=== PATIENT | female | born 1970 | race Caucasian/White ===

== ENCOUNTER 2018-09-12 13:33 | Emergency (ER) | payer OTHER ==
[~2018-09-12] VITALS: Ht 175.3 cm; Wt 90.7 kg
[~2018-09-12 13:33] MED LIST: ACYC800 PO; ALBU90OI INH; AZIT250 PO; BENTYL20 MG PO; CEPH250A PO; CEPH500 PO; CETI10 PO; CODGUAEL PO; CYCL10 PO; DIPATR PO; DIPH25 PO; DIPH50; DIPH50 PO; DOXY100 PO; FAMO20 PO; FLUC150A PO; FLUC200 PO; FLUO.05TC TOP; HYDACE10B PO; HYDACE5; HYDACE5 PO; HYDACE5325 PO; HYDACE7.5; HYDGUAL120 PO; HYDMOR4 PO; IBUP800; IBUP800 PO; IRON SUPPLEMENT PO; LORA2 PO; NAPR500 PO; NAPR500EC PO; Norco 5-325 Ta1 EACH PO; OMEP10ER; OMEP20ER; OMEP20ER PO; OXYACE5T PO; OXYC5 PO; POTCHL20ER PO; PRED10 PO; PRED20 PO; PRILOSEC PO; PROM12.5S; PROM25 PO; PROM6.25SY; Phenergan25 M1 PO; RANI150; RANI150 PO; SULF10OPSA OS; SULTRIDS PO; Zofran Odt4 MG SL
== END 2018-09-12 14:54 | disposition left against medical advice (07) ==
LOC: ER 13:33
DX: Z53.21 Procedure and treatment not carried out due to patient leaving prior to being seen by health care provider (principal)

== ENCOUNTER 2020-06-06 14:13 | Emergency (ER) | payer OTHER ==
[~2020-06-06] VITALS: Ht 175.3 cm; Wt 89.4 kg
[2020-06-06 14:48] LABS: BASOPHILS ABSOLUTE AUTO 0.02 K/mm3 (0.00-0.23); BASOPHILS PERCENT AUTO 0 % (0-2); EOSINOPHILS PERCENT AUTO 3 % (0-6); Hematocrit 44.4 % (33.0-51.0); Hemoglobin 14.6 g/dL (11.5-16.0); IMMATURE GRAN ABSOLUTE AUTO 0.02 K/mm3 (0.00-0.10); IMMATURE GRAN PERCENT AUTO 0 % (0-1); LYMPHOCYTES ABSOLUTE AUTO 1.37 K/mm3 (0.84-5.20); LYMPHOCYTES PERCENT AUTO 15 % (21-46); MONOCYTES ABSOLUTE AUTO 0.52 K/mm3 (0.16-1.47); MONOCYTES PERCENT AUTO 6 % (4-13); Mean Corpuscular HGB 30.5 pg (26.0-34.0); Mean Corpuscular HGB Conc 32.9 g/dL (31.5-36.5); Mean Corpuscular Volume 93 fL (80-100); NEUTROPHILS PERCENT AUTO 75 % (41-73); Platelet Count 213 K/mm3 (150-400); RDW Standard Deviation 44.5 fL (35.1-46.3); Red Blood Cell Count 4.78 M/mm3 (3.80-5.20); White Blood Cell Count 9.03 K/mm3 (4.00-11.30)
[2020-06-06 15:24] LABS: Alanine Aminotransfer (ALT/SGP 51 U/L (12-78); Albumin, Blood 3.8 g/dL (3.4-5.0); Albumin/Globulin Ratio 0.9 (0.8-1.8); Alk Phos 92 U/L (50-136); Anion Gap 4 mmol/L (6-16); Aspartate Aminotrans (AST/SGOT 35 U/L (12-37); Bilirubin, Total 0.4 mg/dL (0.1-1.0); Blood Urea Nitrogen 8 mg/dL (8-24); Bun/Creatinine Ratio 12.2 (12.0-20.0); CO2, Blood 31 mmol/L (21-32); Calcium, Blood 8.9 mg/dL (8.5-10.1); Chloride, Blood 102 mmol/L (98-108); Creatinine, Blood 0.66 mg/dL (0.40-1.00); Globulin, Blood 4.4 g/dL (2.2-4.0); Glomerular Filtration Rate >60 (60-); Glucose, Blood 98 mg/dL (70-99); Potassium, Blood 3.5 mmol/L (3.5-5.5); Sodium, Blood 137 mmol/L (136-145); Total Protein, Blood 8.2 g/dL (6.4-8.2)
[2020-06-06] MEDS ORDERED: AMOCLA875 PO (16:52)
[2020-06-06] MEDS ORDERED: Norco 5-325 Ta1 EACH PO (16:52)
== END 2020-06-06 17:40 | disposition home or self-care (01) ==
LOC: ER 14:13
PROVIDERS: Emergency Medicine
DX: K04.7 Periapical abscess without sinus (principal); L03.211 Cellulitis of face; F17.210 Nicotine dependence, cigarettes, uncomplicated
CPT/HCPCS: 36415; 80053; 85025; 96365; 99283-25; J0295

== ENCOUNTER 2021-02-05 13:20 | Emergency (ER) | payer OTHER ==
[~2021-02-05] VITALS: Ht 175.3 cm; Wt 94.8 kg
[~2021-02-05 13:20] MED LIST changes: +AMOCLA875 PO
[2021-02-05 14:27] LABS: BASOPHILS ABSOLUTE AUTO 0.03 K/mm3 (0.00-0.23); BASOPHILS PERCENT AUTO 1 % (0-2); EOSINOPHILS ABSOLUTE AUTO 0.43 K/mm3 (0.00-0.68); EOSINOPHILS PERCENT AUTO 7 % (0-6); Hematocrit 41.7 % (33.0-51.0); Hemoglobin 13.8 g/dL (11.5-16.0); IMMATURE GRAN ABSOLUTE AUTO 0.01 K/mm3 (0.00-0.10); IMMATURE GRAN PERCENT AUTO 0 % (0-1); LYMPHOCYTES ABSOLUTE AUTO 1.36 K/mm3 (0.84-5.20); LYMPHOCYTES PERCENT AUTO 21 % (21-46); MONOCYTES ABSOLUTE AUTO 0.42 K/mm3 (0.16-1.47); MONOCYTES PERCENT AUTO 7 % (4-13); Mean Corpuscular HGB 31.2 pg (26.0-34.0); Mean Corpuscular HGB Conc 33.1 g/dL (31.5-36.5); Mean Corpuscular Volume 94 fL (80-100); Mean Platelet Volume 11.3 fL (9.1-12.4); NEUTROPHILS ABSOLUTE AUTO 4.11 K/mm3 (1.96-9.15); NEUTROPHILS PERCENT AUTO 65 % (41-73); Platelet Count 195 K/mm3 (150-400); RDW Coefficient Variation 13.3 % (11.7-14.2); RDW Standard Deviation 46.3 fL (35.1-46.3); Red Blood Cell Count 4.43 M/mm3 (3.80-5.20); White Blood Cell Count 6.36 K/mm3 (4.00-11.30)
[2021-02-05 14:38] LABS: Alanine Aminotransfer (ALT/SGP 22 U/L (12-78); Albumin, Blood 3.5 g/dL (3.4-5.0); Albumin/Globulin Ratio 0.9 (0.8-1.8); Alk Phos 63 U/L (50-136); Anion Gap 4 mmol/L (6-16); Aspartate Aminotrans (AST/SGOT 16 U/L (12-37); Bilirubin, Total 0.5 mg/dL (0.1-1.0); Blood Urea Nitrogen 16 mg/dL (8-24); Bun/Creatinine Ratio 21.3 (12.0-20.0); CO2, Blood 29 mmol/L (21-32); Calcium, Blood 8.2 mg/dL (8.5-10.1); Chloride, Blood 106 mmol/L (98-108); Creatinine, Blood 0.75 mg/dL (0.40-1.00); Globulin, Blood 3.7 g/dL (2.2-4.0); Glomerular Filtration Rate >60 (60-); Glucose, Blood 117 mg/dL (70-99); Potassium, Blood 3.9 mmol/L (3.5-5.5); Sodium, Blood 139 mmol/L (136-145); Total Protein, Blood 7.2 g/dL (6.4-8.2)
[2021-02-05 14:48] LABS: Free Thyroxine 0.85 ng/dL (0.70-1.60); Thyroid Stimulating Hormone 1.71 uIU/mL (0.360-4.800)
== END 2021-02-05 16:08 | disposition home or self-care (01) ==
LOC: ER 13:20
PROVIDERS: Physician Assistant
DX: H53.8 Other visual disturbances (principal); F17.200 Nicotine dependence, unspecified, uncomplicated; Z88.1 Allergy status to other antibiotic agents; Z88.6 Allergy status to analgesic agent
CPT/HCPCS: 36415; 70450; 80053; 84439; 84443; 85025; 85651; 86141; 99284-25

== ENCOUNTER 2021-10-18 09:14 | Emergency (ER) | payer OTHER ==
[~2021-10-18] VITALS: Ht 175.3 cm; Wt 90.7 kg
[2021-10-18] MEDS ORDERED: ONDA4ODT MM (12:35)
== END 2021-10-18 12:45 | disposition home or self-care (01) ==
LOC: ER 09:14
DX: U07.1 COVID-19 (principal); F17.200 Nicotine dependence, unspecified, uncomplicated; Z88.6 Allergy status to analgesic agent; Z88.1 Allergy status to other antibiotic agents
CPT/HCPCS: 36415; 96374; 96375; 99283-25; J1885; J2405; J7030

== ENCOUNTER → 2021-12-02 | Outpatient (CLI) | payer OTHER ==
[~2021-12-02] MED LIST changes: +ONDA4ODT MM
[2021-12-02 11:56] LABS: Source, Urine Clean Catch
[2021-12-02 15:55] LABS: Bilirubin, Urine Neg (Neg); Blood, Urine Neg (Neg); Color, Urine Yellow (P-Yellow); Glucose Qualitative, Urine Neg (Neg); Ketones, Urine Neg (Neg); Leukocyte Esterase, Urine Neg (Neg); Nitrite, Urine Pos (Neg); Protein, Urine Neg (Neg); Specific Gravity, Urine 1.015 (1.003-1.022); Urobilinogen, Urine NORM (Normal)
[2021-12-02 16:17] LABS: Appearance, Urine Hazy (Clear)
[2021-12-02 16:18] LABS: Bacteria Many /hpf; Red Blood Cells, Urine 0-2 /hpf (0-2); Squamous Epithelial Cells Few /hpf (Few)
== END ==
LOC: LAB SHORT 11:00 → LAB 11:00
PROVIDERS: Physician Assistant Medical
DX: M54.50 Low back pain, unspecified (principal)
CPT/HCPCS: 81001; 87077; 87086; 87186

== ENCOUNTER 2022-08-18 22:53 | Emergency (ER) | payer OTHER ==
[~2022-08-18] VITALS: Ht 175.3 cm; Wt 81.7 kg
[2022-08-18 23:20] LABS: BASOPHILS ABSOLUTE AUTO 0.03 K/mm3 (0.00-0.23); BASOPHILS PERCENT AUTO 1 % (0-2); EOSINOPHILS ABSOLUTE AUTO 0.25 K/mm3 (0.00-0.68); EOSINOPHILS PERCENT AUTO 5 % (0-6); Hematocrit 34.5 % (33.0-51.0); Hemoglobin 11.4 g/dL (11.5-16.0); IMMATURE GRAN ABSOLUTE AUTO 0.01 K/mm3 (0.00-0.10); IMMATURE GRAN PERCENT AUTO 0 % (0-1); LYMPHOCYTES ABSOLUTE AUTO 1.12 K/mm3 (0.84-5.20); LYMPHOCYTES PERCENT AUTO 22 % (21-46); MONOCYTES ABSOLUTE AUTO 0.31 K/mm3 (0.16-1.47); MONOCYTES PERCENT AUTO 6 % (4-13); Mean Corpuscular HGB 30.4 pg (26.0-34.0); Mean Corpuscular Volume 92 fL (80-100); Mean Platelet Volume 12.2 fL (9.1-12.4); NEUTROPHILS ABSOLUTE AUTO 3.28 K/mm3 (1.96-9.15); NEUTROPHILS PERCENT AUTO 66 % (41-73); Platelet Count 195 K/mm3 (150-400); RDW Coefficient Variation 14.2 % (11.7-14.2); RDW Standard Deviation 47.8 fL (35.1-46.3); Red Blood Cell Count 3.75 M/mm3 (3.80-5.20)
[2022-08-18 23:42] LABS: Albumin, Blood 3.1 g/dL (3.4-5.0); Albumin/Globulin Ratio 0.9 (0.8-1.8); Bilirubin, Total 0.4 mg/dL (0.1-1.0); Bun/Creatinine Ratio 15.4 (12.0-20.0); Calcium, Blood 8.7 mg/dL (8.5-10.1); Creatinine, Blood 0.91 mg/dL (0.40-1.00); Globulin, Blood 3.6 g/dL (2.2-4.0); Potassium, Blood 3.6 mmol/L (3.5-5.5); Total Protein, Blood 6.7 g/dL (6.4-8.2)
[2022-08-19 00:14] LABS: Influenza A, PCR NEGATIVE (NEGATIVE); Influenza B, PCR NEGATIVE (NEGATIVE); Resp Syncytial Virus, PCR NEGATIVE (NEGATIVE); SARS-Cov-2 (COVID-19) PCR, MMC NEGATIVE (NEGATIVE)
[2022-08-19] MEDS ORDERED: FURO20 PO (04:30)
[2022-08-19] MEDS ORDERED: Prinivil10 MG PO (04:30)
== END 2022-08-19 04:33 | disposition home or self-care (01) ==
LOC: ER 22:53
PROVIDERS: Student in an Organized Health Care Education/Training Program
DX: J81.1 Chronic pulmonary edema (principal); R06.00 Dyspnea, unspecified; F17.210 Nicotine dependence, cigarettes, uncomplicated; Z20.822 Contact with and (suspected) exposure to COVID-19; Z88.1 Allergy status to other antibiotic agents; Z88.8 Allergy status to other drugs, medicaments and biological substances; Z88.6 Allergy status to analgesic agent
CPT/HCPCS: 0241U; 36415; 71045; 71260; 80053; 83880; 84484; 85025; 85379; 93005; 93010; J1885; J1940; Q9967

== ENCOUNTER 2022-08-25 08:45 | Inpatient (IN) | payer OTHER ==
[~2022-08-25] VITALS: Ht 175.3 cm; Wt 82.2 kg
[~2022-08-25 08:45] MED LIST changes: +FURO20 PO; +Prinivil10 MG PO
[2022-08-25 10:02] LABS: BASOPHILS ABSOLUTE AUTO 0.03 K/mm3 (0.00-0.23); BASOPHILS PERCENT AUTO 1 % (0-2); EOSINOPHILS ABSOLUTE AUTO 0.34 K/mm3 (0.00-0.68); EOSINOPHILS PERCENT AUTO 7 % (0-6); Hematocrit 39.3 % (33.0-51.0); Hemoglobin 13.2 g/dL (11.5-16.0); IMMATURE GRAN ABSOLUTE AUTO 0.01 K/mm3 (0.00-0.10); IMMATURE GRAN PERCENT AUTO 0 % (0-1); LYMPHOCYTES ABSOLUTE AUTO 1.28 K/mm3 (0.84-5.20); LYMPHOCYTES PERCENT AUTO 25 % (21-46); MONOCYTES ABSOLUTE AUTO 0.43 K/mm3 (0.16-1.47); MONOCYTES PERCENT AUTO 8 % (4-13); Mean Corpuscular HGB 30.4 pg (26.0-34.0); Mean Corpuscular HGB Conc 33.6 g/dL (31.5-36.5); Mean Corpuscular Volume 91 fL (80-100); NEUTROPHILS ABSOLUTE AUTO 3.07 K/mm3 (1.96-9.15); NEUTROPHILS PERCENT AUTO 60 % (41-73); Platelet Count 255 K/mm3 (150-400); RDW Coefficient Variation 13.9 % (11.7-14.2); RDW Standard Deviation 46.5 fL (35.1-46.3); Red Blood Cell Count 4.34 M/mm3 (3.80-5.20); White Blood Cell Count 5.16 K/mm3 (4.00-11.30)
[2022-08-25 10:14] LABS: Albumin, Blood 3.6 g/dL (3.4-5.0); Albumin/Globulin Ratio 0.9 (0.8-1.8); Bilirubin, Total 0.8 mg/dL (0.1-1.0); Bun/Creatinine Ratio 25.2 (12.0-20.0); Calcium, Blood 8.6 mg/dL (8.5-10.1); Creatinine, Blood 0.79 mg/dL (0.40-1.00); Globulin, Blood 3.9 g/dL (2.2-4.0); Magnesium, Blood 2.2 mg/dL (1.6-2.4); Potassium, Blood 3.9 mmol/L (3.5-5.5); Total Protein, Blood 7.5 g/dL (6.4-8.2)
[2022-08-25 17:02] LABS: Source, Urine Clean Catch
[2022-08-25 17:15] LABS: Appearance, Urine Clear (Clear); Bilirubin, Urine Neg (Neg); Blood, Urine Neg (Neg); Color, Urine Yellow (P-Yellow); Glucose Qualitative, Urine Neg (Neg); Ketones, Urine Neg (Neg); Leukocyte Esterase, Urine 2+ (Neg); Nitrite, Urine Pos (Neg); Protein, Urine Neg (Neg); Urobilinogen, Urine NORM (Normal)
[2022-08-25 17:35] LABS: U Amphetamine Screen DETECTED; U Barbituate Screen Not Detected; U Benzodiazapine Screen Not Detected; U Buprenorphine Screen Not Detected; U Cannabinoids Screen Not Detected; U Cocaine Screen Not Detected; U Methadone Screen Not Detected; U Methamphetamine Screen DETECTED; U Opiates Screen Not Detected; U Oxycodone Screen Not Detected; U Phencyclidine Screen Not Detected; U Propoxyphene Screen Not Detected
[2022-08-25 17:44] LABS: Bacteria Many /hpf; Red Blood Cells, Urine 0-2 /hpf (0-2); Renal Epithelial Rare /hpf (0-Rare); Squamous Epithelial Cells Mod /hpf (Few); Transitional Epithelial Cells Rare /hpf (0-Rare)
--- NOTE | 2022-08-25 18:03 | NUR ---
SHIFT SUMMARY PT HAS BEEN RESTING IN BED SINCE ARRIVAL FROM ED. PT HAS C/O HUNGER AND THIS RN CONTACTED THE PROVIDER FOR CLARIFICATION OF NPO ORDERS. PT DENIES ANY C/O PAIN OR DISCOMFORT AND EXPRESSED AN ANXIETY ABOUT CARDIAC DIAGNOSES AND POTENTIAL IMPACTS TO DAILY LIFE. SBP HAS REMAINED LOW (105) AND PT REMAINS ASYMPTOMATIC.
[2022-08-26 04:17] LABS: Bun/Creatinine Ratio 31.6 (12.0-20.0); Calcium, Blood 8.6 mg/dL (8.5-10.1); Creatinine, Blood 0.79 mg/dL (0.40-1.00); Potassium, Blood 4.2 mmol/L (3.5-5.5)
--- NOTE | 2022-08-26 05:11 | NUR ---
SHIFT SUMMARY PT IS A&OX4, IND IN BEDROOM W/ BRP, BEEN SR W/ ST ABNORMALITIES ON TELEMETRY T/O THE NIGHT, SP02> 90% ON RA, NPO SINCE 0000, MOVES IND IN BED, AND CALLS APPROPRIATELY. PT HAS DENIED ANGINA, SOB, N/V/D, AND HAS ONLY COMPLAINED ONCE OF HER CHRONIC BACK PAIN. SHE WAS MEDICATED PER EMAR W/ 325 MG OF TYLONAL WHICH ELIMINATED HER PAIN. BED IS IN LOW, CALL LIGHT IS IN REACH, AND THREE SIDE RAILS ARE UP. WILL CONTINUE TO MONITOR UNTIL SHIFT REPORT IS GIVEN TO THE ONCOMING SHIFT RN. SEE NOTES FOR ANY UPDATES.
--- NOTE | 2022-08-26 07:34 | NUR ---
PT LEFT FOR ANGIO AT 0710 VIA HOSPITAL BED AND OCCOMPANIED BY 2 RN. PT ON RA. CHART WITH 2 RN'S DURING DEPARTURE.
--- NOTE | 2022-08-26 08:30 | NUR ---
[T ARRIVED FROM PROCEDURE AT 0815. PT ON RA. TR BAND IN PLACE ON RIGHT RADIAL SITE. SITE C/D/I, NO BLEEDING OR HEMATOMA NOTED. ARM BOARD IN PLACE. PT SITTING UP IN BED AND EATING BREAKFAST. NO REPORT OF CHEST PAIN/PRESSURE. NO REPORT OF SOB.
--- NOTE | 2022-08-26 19:39 | NUR ---
SHIFT SUMMARY PT A/0X4 AND COOPERATIVE OF CARE. BP SOFT THROUGHOUT SHIFT WITH SBP RANGING 90-100'S. OTHER VSS THROUGHOUT SHIFT WITH O2 SATS IN THE HIGH 90'S ON RA. NO REPORT OF CHEST PAIN/PRESSURE THOUGHOUT SHIFT. NO REPORT OF SOB/DYSPNEA THOUGHOUT SHIFT. PT HAD ANGIO AT BEGINNING OF SHIFT, NO INTERVENTIONS DONE. PT FAMILY UPDATED ON PROCEDURE AND PLAN OF CARE. INFRASTRUCTURE TECHNICIAN DISCUSSED WITH PT SISTER ABOUT USE OF LIFE VEST, LIFE VEST ORDER FORM FILLED OUT AND FAXED. PT EDUCATED ON RADIAL SITE CARE POST ANGIO. RADIAL SITE C/D/I, TEGADERM IN PLACE. PT UP TO BEDSIDE COMMODE, TOLERATED WELL.
[2022-08-27 05:32] LABS: Albumin, Blood 3.3 g/dL (3.4-5.0); Anion Gap 5 mmol/L (6-16); Blood Urea Nitrogen 26 mg/dL (8-24); Bun/Creatinine Ratio 35.1 (12.0-20.0); CO2, Blood 28 mmol/L (21-32); Calcium, Blood 9.7 mg/dL (8.5-10.1); Chloride, Blood 102 mmol/L (98-108); Creatinine, Blood 0.74 mg/dL (0.40-1.00); Glomerular Filtration Rate 97 (60-); Glucose, Blood 115 mg/dL (70-99); Phosphorus, Blood 4.1 mg/dL (2.5-4.9); Potassium, Blood 4.3 mmol/L (3.5-5.5); Sodium, Blood 135 mmol/L (136-145)
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
--- NOTE | 2022-08-27 18:17 | NUR ---
SHIFT SUMMARY PT A/OX4 AND COOPERATIVE OF CARE. PT SBP'S SOFT RANGING 90-100'S, PT RECIEVING SMALL DOSE OF PO METOPROLOL PER ORDERS, DR AWARE OF LOW SBP. OTHER VSS THROUGHOUT SHIFT WITH 02 SATS IN HIGH 90'S ON RA. NO REPORT OF CHEST PAIN/PRESSURE THROUGHOUT SHIFT. NO REPORT OF SOB/DYSPNEA THROUGHOUT SHIFT. PT UP IN ROOM MULTIPLE TIMES, PT REMINDED THAT LOW BP'S PUT HER AT RISK OF GETTING LIGHTHEADED OR PASSING OUT WHICH COULD LEAD TO A FALL, PT RECEPTIVE AND CALLING APPROPIATELY. PT INDEPENDENT IN TURN SELF IN BED, WANTED TO REST FOR GOOD PORTION OF SHIFT.
--- NOTE | 2022-08-28 05:10 | NUR ---
SHIFT SUMMARY PT IS A&0X4, MOVES IND IN BED, HAS BEEN SR 80'S-90'S ON TELE, AND SP02> 90% ON ROOM AIR. PT HAS DENIED SOB, ANGINA, PAIN, AND N/V/D. BED IS IN LOW, CALL LIGHT IS IN REACH, AND SHE HAS BEEN RESTING T/O THE NIGHT. WILL CONTINUE TO MONITOR UNTIL SHIFT REPORT IS GIVEN TO THE ONCOMING SHIFT RN. SEE NOTES FOR ANY UPDATES.
--- NOTE | 2022-08-28 18:11 | NUR ---
SHIFT SUMMARY: PT A&Ox4, INDEPENDENT IN ROOM. O2 SATS >92% ON RA, PT DENIES SOB. SR ON MONITOR W/RATE 80s-90s, PT DENIES CP. PT UPDATED ON PLAN FOR LIFEVEST PLACEMENT TOMORROW, AGREEABLE TO PLAN. PT ABLE TO EAT/DRINK INDEPENDENTLY W/GOOD APPETITE. AT THIS TIME, PT RESTING QUIETLY IN ROOM. WILL CONTINUE TO MONITOR AND TREAT ACCORDINGLY UNTIL CHANGE OF SHIFT.
--- NOTE | 2022-08-28 19:52 | NUR ---
PT WAS TRYING TO LEAVE AMA WHEN COMING ONTO THE SHIFT THE PT WAS PERSISTENT ABOUT LEAVING AMA TO GO HOME AND TAKE CARE OF HER DOGS. THERE WERE SOME HOME SITUATIONS W/ HER PARTNER AND SHE FELT THAT SHE NEEDED TO LEAVE. INVENTORY TECHNICIAN, DR. CALIXTO, AND I EXPLAINED THE RISKS AND THE PT DECIDED TO STAY FOR NOW WHILE HER FRIEND TRYS TO FIND A SOLLUTION FOR HER ANIMALS. PT AGREED TO TRY A MEDICATION TO HELP WITH HER ANXIETY, AND WILL UPDATE US ON WHAT SHE DECIDES. SEE NOTES FOR ANY UPDATES.
--- NOTE | 2022-08-29 05:00 | NUR ---
SHIFT SUMMARY PT IS A&OX4, WAS ANXIOUS AND TRYING TO LEAVE AMA AT THE BEGINING OF THE SHIFT (SEE PREVIOUS NOTE FOR MORE INFORMATION), TELE 80'S-100'S, AND SP02>90% ON ROOM AIR. SHE HAS DENIES ANGINA, SOB, N/V/D, AND HER ANGIO SITE ON HER RIGHT WRIST IS HEALING WNL AND HAS A BANDAID INTACT. SHE WAS C/O SOME ACHES IN HER BACK AND WAS MEDICATED W/ 650MG TYLONAL WHICH HAS RELIEVED THE PAIN. SHE HAS HER BED IN LOW AND CALL LIGHT IS IN REACH. WILL CONTINUE TO MONITOR UNTIL SHIFT REPORT IS GIVEN TO THE ONCOMING SHIFT RN. SEE NOTES FOR ANY UPDATES.
[2022-08-29 05:15] LABS: Bun/Creatinine Ratio 37.8 (12.0-20.0); Calcium, Blood 9.1 mg/dL (8.5-10.1); Creatinine, Blood 0.72 mg/dL (0.40-1.00); Potassium, Blood 4.1 mmol/L (3.5-5.5)
--- NOTE | 2022-08-29 08:34 | NUR ---
Am note Pt alert, orinted X4; anxious but cooperative with care. Pt up ind in room. Pt denies pain, chest pain/pressure, sob, nausea, dizziness and numb/tingling. Pt tele sinus 80, bp soft, held metoprolol this am, will continue to monitor. Spo2 >90% on ra, breathing even and unlabored. Pt abd soft nontender, normo/hypoactive bt. Vss. no other acute changes noted. Will continue to monitor.
--- NOTE | 2022-08-29 18:10 | NUR ---
Shift Summary No acute changes noted. Metoprolol given later in morning as bp within vs. Other vss. Awaiting lifevest approval and placement, last update, we are awaiting insurance approval. No other acute changes noted. Will continue to monitor.
--- NOTE | 2022-08-30 06:03 | NUR ---
NO ISSUES OVERNIGHT, PT RESTED WELL, VSS, CALL LIGHT IN REACH
--- NOTE | 2022-08-30 08:22 | NUR ---
Am note Pt alert, oriented x4; anxious regarding discharge, cooperative with care. Pt up ind in room. Pt denies pain, chest pain/pressure, sob, nauses, dizziness and numb/tingling. Tele sinus 80-90's bp stable this am. Spo2 >90% on ra, breathing even and unlabored, ls clear t/o. Abd soft nontender, with normoactive bt. No edema noted. Other vss. No other acute changes noted. Awaiting approval and placement of lifevest prior to discharge. Will continue to monitor.
[2022-08-30] MEDS ORDERED: METO25ER PO (17:42)
[2022-08-30] MEDS ORDERED: Nicoderm Cq1 EAC1 TOP (17:43)
[2022-08-30] MEDS ORDERED: FURO20 PO (17:46)
--- NOTE | 2022-08-30 19:18 | NUR ---
Discharge Summary No acute changes noted t/o shift. Lifevest approved and and fitted. Zio patch not order prior to discharge, plans to have placed in office tomorrow, pt instructed to call Dr alejandre in am to schedule appointment, Dr Bender notified. Pt educated on discharge insturctions, follow up appointment and prescription. Pt educated on new chf diagnosis and s/sx to watch for and dietary changes. Vss. Pt left room via wheelchair at 1850.
== END 2022-08-30 18:47 | disposition home or self-care (01) | DRG 917 ==
LOC: ER 08:45 → ERHOLD 08:46 → PCU 08:46
PROVIDERS: Internal Medicine; Nurse Practitioner Acute Care; Physician Assistant; ADMIT Student in an Organized Health Care Education/Training Program
PROC: 3E02340 Introduction of Influenza Vaccine into Muscle, Percutaneous Approach (ICD-10-PCS; 2022-08-25)
PROC: B211YZZ Fluoroscopy of Multiple Coronary Arteries using Other Contrast (ICD-10-PCS; principal; 2022-08-26)
DX: T43.651A Poisoning by methamphetamines accidental (unintentional), initial encounter (principal); I50.23 Acute on chronic systolic (congestive) heart failure; I42.0 Dilated cardiomyopathy; I42.7 Cardiomyopathy due to drug and external agent; E87.1 Hypo-osmolality and hyponatremia; E86.1 Hypovolemia; R55 Syncope and collapse; I11.0 Hypertensive heart disease with heart failure; I49.9 Cardiac arrhythmia, unspecified; K44.9 Diaphragmatic hernia without obstruction or gangrene; F17.210 Nicotine dependence, cigarettes, uncomplicated; R94.31 Abnormal electrocardiogram [ECG] [EKG]; Z23 Encounter for immunization; K27.9 Peptic ulcer, site unspecified, unspecified as acute or chronic, without hemorrhage or perforation; R73.03 Prediabetes; K21.9 Gastro-esophageal reflux disease without esophagitis; F15.10 Other stimulant abuse, uncomplicated; I34.0 Nonrheumatic mitral (valve) insufficiency; I95.9 Hypotension, unspecified; I27.20 Pulmonary hypertension, unspecified; B96.20 Unspecified Escherichia coli [E. coli] as the cause of diseases classified elsewhere; B95.1 Streptococcus, group B, as the cause of diseases classified elsewhere; Z98.890 Other specified postprocedural states; Z88.1 Allergy status to other antibiotic agents; Z88.8 Allergy status to other drugs, medicaments and biological substances; Z79.01 Long term (current) use of anticoagulants; Z79.811 Long term (current) use of aromatase inhibitors; Z71.51 Drug abuse counseling and surveillance of drug abuser
CPT/HCPCS: 36415; 71045; 76937; 80048; 80053; 80069; 81001; 83735; 83880; 84443; 84484; 85025; 87077; 87086; 87147; 87186; 90686; 93005; 93010; 93454; 96365; 96366; 99152; 99153; 99285-25; A9270; C1769; C1887; C1894; G0008; G0378; J1644; J2250; J3010; J3475; J7030; J7050; Q9967

== ENCOUNTER 2022-10-02 05:59 | Inpatient (IN) | payer OTHER ==
[~2022-10-02] VITALS: Ht 162.6 cm; Wt 79.4 kg
[~2022-10-02 05:59] MED LIST changes: +METO25ER PO; +Nicoderm Cq1 EAC1 TOP
[2022-10-02 06:19] LABS: BASOPHILS ABSOLUTE AUTO 0.03 K/mm3 (0.00-0.23); BASOPHILS PERCENT AUTO 0 % (0-2); EOSINOPHILS ABSOLUTE AUTO 0.19 K/mm3 (0.00-0.68); EOSINOPHILS PERCENT AUTO 2 % (0-6); Hematocrit 39.2 % (33.0-51.0); Hemoglobin 12.9 g/dL (11.5-16.0); IMMATURE GRAN ABSOLUTE AUTO 0.21 K/mm3 (0.00-0.10); IMMATURE GRAN PERCENT AUTO 2 % (0-1); LYMPHOCYTES ABSOLUTE AUTO 1.72 K/mm3 (0.84-5.20); LYMPHOCYTES PERCENT AUTO 16 % (21-46); MONOCYTES ABSOLUTE AUTO 0.41 K/mm3 (0.16-1.47); MONOCYTES PERCENT AUTO 4 % (4-13); Mean Corpuscular HGB 30.6 pg (26.0-34.0); Mean Corpuscular HGB Conc 32.9 g/dL (31.5-36.5); Mean Corpuscular Volume 93 fL (80-100); Mean Platelet Volume 10.7 fL (9.1-12.4); NEUTROPHILS ABSOLUTE AUTO 8.16 K/mm3 (1.96-9.15); NEUTROPHILS PERCENT AUTO 76 % (41-73); Platelet Count 181 K/mm3 (150-400); RDW Coefficient Variation 14.2 % (11.7-14.2); RDW Standard Deviation 48.2 fL (35.1-46.3); Red Blood Cell Count 4.22 M/mm3 (3.80-5.20); White Blood Cell Count 10.72 K/mm3 (4.00-11.30)
[2022-10-02 06:35] LABS: International Normalized Ratio 1.01; Prothrombin Time Results 10.6 Sec (9.7-11.5)
[2022-10-02 06:42] LABS: PCO2 Arterial 38.2 mmHg (35-45); PO2 Arterial 202 mmHg (80-100)
[2022-10-02 06:43] LABS: Magnesium, Blood 2.2 mg/dL (1.6-2.4)
[2022-10-02 06:44] LABS: Albumin, Blood 3.5 g/dL (3.4-5.0); Albumin/Globulin Ratio 0.9 (0.8-1.8); Bilirubin, Total 0.8 mg/dL (0.1-1.0); Bun/Creatinine Ratio 25.6 (12.0-20.0); Calcium, Blood 8.6 mg/dL (8.5-10.1); Creatinine, Blood 0.98 mg/dL (0.40-1.00); Globulin, Blood 3.8 g/dL (2.2-4.0); Potassium, Blood 3.8 mmol/L (3.5-5.5); Total Protein, Blood 7.3 g/dL (6.4-8.2)
[2022-10-02] MEDS ORDERED: SPIR25 PO (08:16)
[2022-10-02 08:37] LABS: U Amphetamine Screen DETECTED; U Barbituate Screen Not Detected; U Benzodiazapine Screen Not Detected; U Buprenorphine Screen Not Detected; U Cannabinoids Screen Not Detected; U Cocaine Screen Not Detected; U Methadone Screen Not Detected; U Methamphetamine Screen DETECTED; U Opiates Screen Not Detected; U Oxycodone Screen Not Detected; U Phencyclidine Screen Not Detected; U Propoxyphene Screen Not Detected
--- NOTE | 2022-10-02 18:51 | NUR ---
SHIFT SUMMARY NEURO: A/O X4 CARDIAC: SR, QTC UP TO 680, DR. ATKINSON (CARDIOLOGY) NOTIFIED. NO NEW ORDERS. SBP 80'S-90'S. OK TO MAINTAIN MAP > 65 PER MD. HELD MEDS DUE TO HYPOTENSION. RESP: ON 2L NC UPON ARRIVAL TO ICU, TITRATED O2 OFF, PT NOW ON ROOM AIR MAINTAINING O2 SAT > 95% GI: CARDIAC DIET ORDERED, PT ATE 100% ALL MEALS AND SNACKS. DENIES N/V. : FLANAGAN DRAINING SANDY URINE. SKIN: INTACT, HANDS DIRTY, STATES SHE HAS A SPLINTER IN HER HAND. IV: PIV X2, BOTH SL. SISTER AND FRIEND IN TO VISIT AT BEDSIDE.
--- NOTE | 2022-10-02 20:32 | NUR ---
ASSUMED CARE OF PT AT 1900 NEURO- PT AWAKE SITTING UP IN BED. A/O X4. C/O GENERALIZED PAIN THROUGHOUT ENTIRE BODY. CARDIAC- SINUS TACHY WITH HR 112. BP 98/69 RESP- SPO2 >90% ON RA GI, - FLANAGAN CATH DRAINING TO GRAVIYT. NO BM TODAY. SEE FULL ASSESSMENT FOR FURTHER INFORMATION.
--- NOTE | 2022-10-02 21:00 | NUR ---
FLANAGAN CATH TAKEN OUT. PT IS CONTINENT AND ABLE TO MAKE NEEDS KNOWN.
--- NOTE | 2022-10-02 22:00 | NUR ---
2L NC INITIATED D/T OXYGENATION NEEDS WHILE SLEEPING. SPO2 FLUCTUATING FROM 85% TO 90%.
--- NOTE | 2022-10-03 01:46 | NUR ---
SMALL RUN OF V-TACH NOTED. CONTINUING TO MONITOR.
[2022-10-03 03:41] LABS: BASOPHILS ABSOLUTE AUTO 0.03 K/mm3 (0.00-0.23); BASOPHILS PERCENT AUTO 0 % (0-2); EOSINOPHILS ABSOLUTE AUTO 0.24 K/mm3 (0.00-0.68); EOSINOPHILS PERCENT AUTO 3 % (0-6); Hematocrit 36.5 % (33.0-51.0); Hemoglobin 12.3 g/dL (11.5-16.0); IMMATURE GRAN ABSOLUTE AUTO 0.03 K/mm3 (0.00-0.10); IMMATURE GRAN PERCENT AUTO 0 % (0-1); LYMPHOCYTES ABSOLUTE AUTO 1.42 K/mm3 (0.84-5.20); LYMPHOCYTES PERCENT AUTO 16 % (21-46); MONOCYTES ABSOLUTE AUTO 0.44 K/mm3 (0.16-1.47); MONOCYTES PERCENT AUTO 5 % (4-13); Mean Corpuscular HGB 30.1 pg (26.0-34.0); Mean Corpuscular HGB Conc 33.7 g/dL (31.5-36.5); Mean Corpuscular Volume 89 fL (80-100); Mean Platelet Volume 11.2 fL (9.1-12.4); NEUTROPHILS ABSOLUTE AUTO 6.96 K/mm3 (1.96-9.15); NEUTROPHILS PERCENT AUTO 76 % (41-73); Platelet Count 186 K/mm3 (150-400); RDW Coefficient Variation 14.3 % (11.7-14.2); RDW Standard Deviation 46.4 fL (35.1-46.3); Red Blood Cell Count 4.09 M/mm3 (3.80-5.20); White Blood Cell Count 9.12 K/mm3 (4.00-11.30)
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
[2022-10-03 05:58] LABS: Albumin, Blood 3.2 g/dL (3.4-5.0); Albumin/Globulin Ratio 0.9 (0.8-1.8); Bun/Creatinine Ratio 29.1 (12.0-20.0); Calcium, Blood 8.3 mg/dL (8.5-10.1); Creatinine, Blood 0.69 mg/dL (0.40-1.00); Globulin, Blood 3.6 g/dL (2.2-4.0); Total Protein, Blood 6.8 g/dL (6.4-8.2)
--- NOTE | 2022-10-03 09:30 | NUR ---
CALLED STOCK CLERK [employer] REPAIRER CALLED DR. RDZ TO DISCUSS ELEVATED TROPONIN. PER MD, RESULT IS EXPECTED, NO NEED FOR FURTHER LEVELS AND OK TO D/C HOME TODAY WITH ZOLL VEST ON. RELAYED INFORMATION TO DR. CHAPPELL. PLAN WILL BE TO D/C HOME TODAY IF MAINTAINS BP WITH ACTIVITY. RN TO CONTINUE TO FOLLOW
[2022-10-03] MEDS ORDERED: SPIR25 PO (13:15)
--- NOTE | 2022-10-03 14:35 | NUR ---
CONTACTED [facility] PT HAS D/C ORDERS. CONTACTED [facility] TO DISCUSS VEST NEEDS, REP TO PRESENT TO HOSPITAL TO INTERROGATE VEST AND EVALUATE NEED FOR NEW DEVICE DUE TO SHOCK DELIVERED. RN NAME AND PHONE NUMBER TO [facility] PROVIDED TO [facility] REP. THEY WILL CALL BACK WITH INFORMATION ON TIME OF ARRIVAL OF COSMETICS PRESSER. HOOKER MACHINE TENDER AND DR. CHAPPELL NOTIFIED. RN TO CONTINUE TO MONITOR.
--- NOTE | 2022-10-03 18:22 | NUR ---
PT READY FOR D/C [facility]OLL REP REPLACED VEST AND COMPLETED PT TEACHING. D/C INSTRUCTIONS REVIEWED BY THIS RN. PT VERBALIZES UNDERSTANDING OF ALL INSTRUCTIONS AND ALL QUESTIONS ANSWERED. SISTER AND BROTHER IN LAW HERE TO TAKE PT HOME. PT EATING DINNER BEFORE D/C. TO BE TRANSPORTED TO PERSONAL VEHICLE VIA W/C.
[2022-11-04] MEDS ORDERED: LISINOPRIL2.5 MG PO (03:11)
== END 2022-10-03 18:30 | disposition home or self-care (01) | DRG 917 ==
LOC: ER 05:59 → ICUW 08:50
PROVIDERS: Family Medicine; Student in an Organized Health Care Education/Training Program; ADMIT Internal Medicine
PROC: 0BH17EZ Insertion of Endotracheal Airway into Trachea, Via Natural or Artificial Opening (ICD-10-PCS; principal; 2022-10-02)
PROC: 5A1935Z Respiratory Ventilation, Less than 24 Consecutive Hours (ICD-10-PCS; 2022-10-02)
DX: T43.651A Poisoning by methamphetamines accidental (unintentional), initial encounter (principal); J96.90 Respiratory failure, unspecified, unspecified whether with hypoxia or hypercapnia; I42.0 Dilated cardiomyopathy; I47.20 Ventricular tachycardia, unspecified; I50.22 Chronic systolic (congestive) heart failure; K21.9 Gastro-esophageal reflux disease without esophagitis; F17.210 Nicotine dependence, cigarettes, uncomplicated; F15.90 Other stimulant use, unspecified, uncomplicated; R77.8 Other specified abnormalities of plasma proteins; I27.21 Secondary pulmonary arterial hypertension; Z98.890 Other specified postprocedural states; Z88.1 Allergy status to other antibiotic agents; Z88.8 Allergy status to other drugs, medicaments and biological substances; Z87.11 Personal history of peptic ulcer disease
CPT/HCPCS: 31500; 36415; 36600; 51702; 71045; 80053; 82803; 83735; 83880; 84484; 85025; 85610; 85730; 86850; 86900; 86901; 93005; 93010; 94002; 96365-59; 96366-59; 96367-59; 96376-59; 99291-25; A9270; J1650; J1940; J3010; J3475; J7050

== ENCOUNTER → 2023-02-27 | Outpatient (CLI) | payer OTHER ==
[~2023-02-27] MED LIST changes: +Amiodarone HCl200 MG PO; +LISINOPRIL2.5 MG PO; +SPIR25 PO
== END | disposition home or self-care (01) ==
LOC: LAB SHORT 12:02 → LAB 12:02
DX: L03.116 Cellulitis of left lower limb (principal)
CPT/HCPCS: 87070; 87075; 87077; 87147; 87186; 87205